=== PATIENT | female | born 1960 | race Caucasian/White ===

== ENCOUNTER 2019-04-29 10:11 | Inpatient (IN) | payer OTHER ==
[~2019-04-29] VITALS: Ht 167.6 cm; Wt 54.4 kg
--- NOTE | ~2019-04-29 | HC ---
[facility] [place] [address] CONSULTATION Name: QASIM GUTIERREZ Room #: 439-P ADM IN M.R.#: [id number] Admission: 04/29/19 Attend Phys: James Jim Discharge: Date of : 56 Report #: [id number] THIS REPORT FOR: //name// CC: Torito Arnett [facility] physician/PCP NO PCP DATE OF SERVICE: 04/30/2019 CHIEF COMPLAINT: Prolapsed colostomy as well as sacral and ischial pressure ulcerations. HISTORY OF PRESENT ILLNESS: This is a 58-year-old female patient who presented to the Emergency Department yesterday with a prolapsed colostomy. The patient has really not been able to provide much information about herself. She came from [facility] and was also noted to have pressure ulcers to the pelvic region and I have been asked to see her with regard to this. Listed in her past in her record include past medical history of COPD, paraplegia, multiple pressure ulcerations, hypertension, and hypothyroidism. CURRENT MEDICATIONS: Include levothyroxine, Zoloft, Coumadin, Augmentin, oxybutynin, midodrine, and Lipitor. ALLERGIES: TETRACYCLINE. SOCIAL HISTORY: No history of alcohol or tobacco use. FAMILY HISTORY: Noncontributory. REVIEW OF SYSTEMS: CONSTITUTIONAL: The patient denies fever, chills, or weight loss. NEUROLOGICAL: The patient has paraplegia. Denies other focal weakness, numbness or tingling. EYES: The patient denies visual changes, redness, or drainage. ENT: The patient denies earache, nasal drainage, and sore throat. CARDIOVASCULAR: The patient denies chest pain, palpitations or diaphoresis. PULMONARY: The patient denies cough or shortness of breath. GASTROINTESTINAL: The patient does note some mild abdominal discomfort. She is aware of the prolapse of her colostomy. She cannot recall specific facts regarding the colostomy, like its location or level. ORTHOPEDIC: The patient is loosely aware that she has pressure ulcers on the pelvic region, but is unaware of their duration or onset or previous treatment. Other systems in a 14-point review of systems are negative or unobtainable and per history of present illness. [facility] [address] [place] [address] CONSULTATION Name: QASIM GUTIERREZ Room #: 439- ADM IN ..#: [id number] Admission: 04/29/19 Attend Phys: James Jim Discharge: Date of : 56 Report #: [id number] PHYSICAL EXAMINATION: VITAL SIGNS: At this time include temperature 37.2, pulse 88, respiratory rate 18, and blood pressure 102/93. GENERAL: This is a somewhat chronically ill-appearing female patient who appears to be in minimal distress. HEENT: Head normocephalic. Nose and throat clear. NECK: Supple. ABDOMEN: Soft. Bowel sounds present. Colostomy is slightly prolapsed today. It is to the right of the midline. EXTREMITIES: Pelvic region demonstrates fairly large extensive pressure ulceration. She has a stage 4 pressure ulcer of the left ischial tuberosity and a very large stage 4 pressure ulcer of the sacrum. She has an unstageable pressure ulcer of the right greater trochanter. She has some flexion contracture of the lower extremities. Heels appear to be intact at this time. NEUROLOGIC: The patient has paraplegia with some contracture of the lower extremity. LABORATORY DATA: Include white blood cell count 11.8 down from 17.1, hemoglobin is 7.2. Sodium 132, potassium 3.1, chloride 99, CO2 of 24, BUN 14, creatinine 0.4, albumin is very low at 1.8. CLINICAL IMPRESSION: 1. Prolapsed colostomy. Currently being evaluated by Surgery. 2. Stage 4 pressure of the left ischium. 3. Stage 4 pressure ulcer of the sacrum. 4. Unstageable pressure ulcer of the right greater trochanter. 5. Possible osteomyelitis of the pelvis. 6. Severe protein-calorie malnutrition, albumin 1.8. 7. Paraplegia. 8. History of chronic obstructive pulmonary disease. RECOMMENDATIONS: At this point in time, we will start with Dakin's moist gauze dressings to the pelvic ulcerations. She will need a low air loss mattress and q. 2 hour turning and positioning. She will need aggressive nutritional support. One may give some consideration to placement of a feeding tube to help with offsetting her severe nutritional deficits. At these levels, I would not predict adequate wound healing. I think she would benefit from surgical debridement of the pressure ulcerations. Dr. Giordano has already been consulted to evaluate her colostomy. We will ask him to evaluate her for debridement of the pressure ulcerations. She may be a good candidate for a wound VAC. She has already been ____, which is good. I appreciate being asked to see her in consultation. By: 1010 1222 Aram Kelley MD /nt
[2019-04-29 10:13] VITALS: BP 104/42
[2019-04-29] MEDS ORDERED: FOSAMAX 70 MG T70 MG PO (10:46)
[2019-04-29] MEDS ORDERED: LEVO-T100 MCG PO (10:47)
[2019-04-29] MEDS ORDERED: PROTONIX40 M2 PO (10:47)
[2019-04-29] MEDS ORDERED: ZOLOFT100 MG PO (10:48)
[2019-04-29] MEDS ORDERED: AUGMENTIN 875-1 EACH PO (10:48)
[2019-04-29] MEDS ORDERED: COUMADIN 5 MG TA5 M1 PO (10:48)
[2019-04-29] MEDS ORDERED: OXYBUTYNIN 5 MG5 M2 PO (10:49)
[2019-04-29] MEDS ORDERED: MIDODRINE HCL2.5 M1 PO (10:49)
[2019-04-29] MEDS ORDERED: LIPITOR10 MG PO (10:49)
[2019-04-29] MEDS ORDERED: LASIX 40 MG TAB40 MG PO (10:50)
[2019-04-29] MEDS ORDERED: ALPRAZOLAM XR3 MG PO (10:50)
[2019-04-29 11:01] LABS: ABSOLUTE NEUTROPHILS 14.6 thou/uL (1.4-8.2); BASOPHILS 0.4 % (0.0-2.0); EOSINOPHILS 1.7 % (0.0-3.0); HEMATOCRIT 27.4 % (37.0-47.0); HEMOGLOBIN 8.5 gm/dL (12.0-15.0); LYMPHOCYTES 6.3 % (24.0-44.0); MCH 24.7 pg (26.0-34.0); MCHC 30.9 g/dL (28.0-37.0); MCV 79.7 fL (80.0-100.0); MONOCYTES 5.9 % (1.0-8.0); PLATELET COUNT 562 thou/uL (150-400); POLYS 85.7 % (36.0-66.0); RBC 3.43 mil/uL (4.20-5.00); RDW 16.7 % (10.5-14.5); WBC 17.1 thou/uL (4.0-11.0)
[2019-04-29 11:02] LABS: CALCIUM 8.2 mg/dL (8.5-10.1); CREATININE 0.5 mg/dL (0.6-1.0); POTASSIUM 3.6 mmol/L (3.5-5.1)
[2019-04-29 11:08] LABS: ALBUMIN 1.8 g/dL (3.4-5.0); TOTAL BILIRUBIN 0.5 mg/dL (<0.1-1.0); TOTAL PROTEIN 6.6 g/dL (6.4-8.2)
--- NOTE | 2019-04-29 11:53 | NUR ---
PT AWAY FROM ROOM- CT
[2019-04-29 12:45] LABS: INR 1.4; PROTIME 13.6 Seconds (9.3-11.4)
[2019-04-29 13:55] LABS: URINE BILIRUBIN NEGATIVE (Negative); URINE BLOOD 2+ (Negative); URINE CLARITY CLEAR; URINE COLOR YELLOW; URINE GLUCOSE-RANDOM* NEGATIVE (Negative); URINE KETONES NEGATIVE (Negative); URINE PROTEIN (DIPSTICK) NEGATIVE (Negative); URINE SPECIFIC GRAVITY <= 1.005 (1.005-1.035); URINE UROBILINOGEN 0.2 E.U./dl (0.2-1.0)
[2019-04-29 14:14] LABS: URINE LEUKOCYTES-REFLEX 3+ (Negative); URINE NITRITE-REFLEX POSITIVE (Negative)
[2019-04-29 14:25] LABS: AMORPHOUS URATES Moderate /LPF (None Seen); CASTS None Seen /LPF (None Seen); SQUAMOUS 0-3 Few /LPF (0-3); URINE RBC 3-10 Few /HPF (0-2); URINE WBC-REFLEX 6-15 Few /HPF (0-5)
[2019-04-29 14:59] VITALS: BP 102/45
[2019-04-29 15:35] VITALS: BP 102/45
[2019-04-29 17:11] VITALS: BP 94/48
[2019-04-29 20:10] VITALS: BP 93/43
--- NOTE | 2019-04-29 20:14 | NUR ---
PT RECEIVED FROM THE ER AT 1635 TO 439 ALERT AND IN NO ACUTE DISTRESS. IV FLUIDS GIVEN IN ER AND VANCO FINISHED THIS AFTERNOON. PT DENIES PAIN. TURNS WELL IN BED. DSNGS CHANGED ON WOUNDS AFTER ADMISSION PICTURES TAKEN. OSTOMY PROLAPSED MORE AFTER BEING REDUCED SOME IN THE ER. LIQUID BROWN STOOL OUTPUT NOTED AT THIS TIME. ATE SOME FOR DINNER. TAKING WATER WELL.
--- NOTE | 2019-04-30 03:51 | NUR ---
ASSUMED CARE OF PT FROM DAY SHIFT PT RESTING IN BED, DENIES PAIN ALERT TO SELF AND PLACE, CALM COOPERATIVE, ABLE TO TAKE PILLS WHOLE. IV ABX GIVEN,. COLOSTOMY WITH BAG ATTACH IN PLACE WITH BROWN SOFT STOOL. PT REPOSITION EVERY 2 HOURS, PT RESTED WELL THROUGHOUT HOURLY ROUNDS, WILL CONITNUE WITH CURRENT PLAN OF CARE.
[2019-04-30 04:00] VITALS: BP 108/34
[2019-04-30 06:46] LABS: HEMATOCRIT 23.3 % (37.0-47.0); HEMOGLOBIN 7.2 gm/dL (12.0-15.0); MCV 80.6 fL (80.0-100.0); RBC 2.89 mil/uL (4.20-5.00); RDW 17.4 % (10.5-14.5); WBC 11.8 thou/uL (4.0-11.0)
[2019-04-30 07:01] LABS: INR 1.4; PROTIME 14.1 Seconds (9.3-11.4)
[2019-04-30 07:06] LABS: CALCIUM 8.4 mg/dL (8.5-10.1); CREATININE 0.4 mg/dL (0.6-1.0); POTASSIUM 3.1 mmol/L (3.5-5.1)
[2019-04-30 08:11] VITALS: BP 102/93
--- NOTE | 2019-04-30 09:26 | NUR ---
OSTOMY CARE; POUCH LEAKING, LOOP STOMA PROLAPSED ~12CM, PT UNABLE TO STATE WHEN SHE HAD OSTOMY SURGERY, OR TYPE OF STOMA, DUE TO LOCATION PROBABLE TRANSVERSE LOOP, PERISTOMAL SKIN INTACT, LOOSE BROWN STOOL NOTED, ALERT AND COOPERATIVE, 2 PIECE 4 INCH POUCH MAGDALENA POUCH APPLIED W/ STOMA PASTE, SUPPLIES PLACED AT BS, SLEEP TECHNICIAN INFORMED RECOMMENDATIONS 4 INCH MAGDALENA 2 PIECE SYSTEM, CHANGE Q3-4 DAYS AND PRN
--- NOTE | 2019-04-30 10:07 | H ---
[facility] [place] [address] HISTORY AND PHYSICAL Name: QASIM GUTIERREZ Room #: 439-P ADM IN M.R.#: [id number] Admission: 04/29/19 Attend Phys: James Jim Discharge: Date of : 56 Report #: [id number] THIS REPORT FOR: //name// CC: Torito VÁSQUEZ physician/PCP NO PCP DATE OF SERVICE: 04/29/2019 CHIEF COMPLAINT: Abdominal pain. HISTORY OF PRESENT ILLNESS: The patient is a 58-year-old female sent from [facility] facility for evaluation of her abdominal pain and concern of prolapsing ostomy. The nursing staff noted what appeared to be bowel prolapsing from the ostomy site since yesterday. She said it has been causing her some discomfort or pain. She really cannot provide much other details or history. When asked specifically about her medications, wounds or why she is in the facility, she cannot explain why. PAST MEDICAL HISTORY: COPD, DVT, chronic Coumadin, paraplegia, multiple pressure wounds, bilateral ischial tuberosity wounds. PAST SURGICAL HISTORY: Other than the colostomy is unknown. FAMILY HISTORY: Noncontributory. SOCIAL HISTORY: Unknown alcohol or tobacco use. ALLERGIES: TETRACYCLINE. MEDICATIONS: Fosamax, Levoxyl, Protonix, Zoloft, Coumadin, oxybutynin, midodrine, Lipitor, Lasix, Xanax. REVIEW OF SYSTEMS: She denies headache, chest pain, shortness of breath, dysuria, myalgias, syncope or fall. OBJECTIVE: VITAL SIGNS: Temperature 37.1, pulse 105, respirations 25, blood pressure 104/42, O2 sat 99% on 2 liters. GENERAL: She is awake and alert, resting comfortably in bed, in no distress. HEAD AND NECK: Unremarkable. LUNGS: Clear. HEART: Regular. ABDOMEN: Soft, normoactive bowel sounds with colostomy in the right mid abdomen. EXTREMITIES: No cyanosis, clubbing or edema. There is a flexion contracture of [address] [address] [facility] ADM IN M.R.#: [id number] Admission: 04/29/19 Attend Phys: James Jim Discharge: Date of : 56 Report #: [id number] the left hip. There is a large open wound in the left hip along with excoriated area on the right hip. NEUROLOGIC: Her speech is intact. She moves upper extremities, limited to no movement of lower extremities. LABORATORY DATA: White count 17, hemoglobin 8.5, MCV 79. Sodium 127, [address] 1[address] of the abdomen and pelvis revealed some edema around the ostomy, but no fluid collection or abscess. There is also a large left decubitus ulcer with exposed tuberosity and osteomyelitis with changes of septic arthritis in the left hip joint. There is also note of a smaller right wound overlying the right ischial tuberosity, fluid extends from the skin to the tuberosity, but no evidence of bone destruction or osteomyelitis on the right. ASSESSMENT: 1. Sepsis syndrome. 2. Left septic arthritis. 3. Left hip osteomyelitis. 4. Left ischial tuberosity stage 4 wound. 5. Microcytic anemia. 6. Paraplegia. 7. Chronic anticoagulation with Coumadin. 8. Severe protein-calorie malnutrition, albumin 1.8. PLAN: She is admitted for septic treatment including fluid resuscitation in the ER along with IV fluids. Dr. Giordano has been consulted and has assessed her colostomy opening. I have asked Dr. Curt Arnett to assess her for antibiotic treatment and consideration of any further workup needed on the left hip. It is unclear the chronicity of these wounds. <ELECTRONICALLY SIGNED> By: Elijah Braga MD 04/30/19 1007 1422 1436 Elijah Braga MD /nt
--- NOTE | 2019-04-30 10:43 | NUR ---
ASSESSMENT-PT CAME FROM [facility]. PRIOR TO THAT SHE SAYS SHE WAS LIVING AT HOME WITH HER IN AN EARTH CONTACT HOME. PT USES A WC FOR MOBILITY. PT UNSURE WHO PROVIDES HER O2. SON LIVES IN THE [place] AND ANOTHER SON IN [place]. SPOUSE IS A COUPLE OF YEARS OLDER, WORKS AND IS INDEPENDENT. ANTICIPATE PT WILL RETURN TO [facility] SKILL[facility] AT DC. TELEPHONE UPDATE PROVIDED TO RUDI AT [facility]. FOLLOWING TO ASSIST WITH DC PLANNING.
[2019-04-30 19:40] VITALS: BP 92/41
--- NOTE | 2019-04-30 21:02 | NUR ---
A&OX4, VSS, DENIES PAIN. WOUND DRESSING CHANGE COMPLETED. PATIENT HAD FEVER OF 102, TYLENOL GIVEN AND TEMP DECREASED TO 98. NO SIGNS OF DISTRESS. PATIENT TURNED. OSTOMY CARE DONE BY OSTOMY NURSE. SURGEON IN TO VIEW OSTOMY WITH PROTRUDING INTESTINES. NO BM FROM OSTOMY, SEROSANGUINOUS DRAINAGE IN BAG. WILL CONTINUE TO MONITOR.
--- NOTE | 2019-05-01 02:13 | NUR ---
PT CARE ASSUMED AT 1900 WITH OT SLEEPING.PT DENIED PAIN AND N/V.PT HAS A ALMEIDA CATHETER IN PLACE.PT HAS A PROLAPSED OSTOMY( POSSIBLE SURGERY TODAY).PT APPEARED TO BE IN NO DISTRESS.WILL CONTINUE TO MONITOR POC
[2019-05-01 05:48] VITALS: BP 105/50
[2019-05-01 06:33] LABS: INR 1.7; PROTIME 17.2 Seconds (9.3-11.4)
[2019-05-01 08:01] VITALS: BP 103/48
[2019-05-01 16:50] VITALS: BP 99/43
[2019-05-01 20:10] VITALS: BP 104/44
--- NOTE | 2019-05-01 20:21 | NUR ---
QUIET UNEVENTFUL DAY. RESTED IN BED QUIETLY. POOR APPETITE NOTED. IV ANTIBIOTICS CONTINUED. FALL PRECAUTIONS IN PLACE. DENIED PAIN.
[2019-05-02 04:25] VITALS: BP 98/43
--- NOTE | 2019-05-02 05:26 | NUR ---
1909-Report received from day shift nurse and care assumed. The pt. had an uneventful shift, she remains on IV Antibiotic, wound dressings intact.
[2019-05-02 05:59] LABS: ABSOLUTE NEUTROPHILS 10.4 thou/uL (1.4-8.2); BASOPHILS 0.4 % (0.0-2.0); EOSINOPHILS 2.2 % (0.0-3.0); HEMATOCRIT 22.4 % (37.0-47.0); LYMPHOCYTES 9.5 % (24.0-44.0); MCHC 31.4 g/dL (28.0-37.0); MCV 79.6 fL (80.0-100.0); PLATELET COUNT 399 thou/uL (150-400); POLYS 82.9 % (36.0-66.0); RBC 2.82 mil/uL (4.20-5.00); RDW 17.2 % (10.5-14.5); WBC 12.5 thou/uL (4.0-11.0)
[2019-05-02 06:14] LABS: INR 2.3; PROTIME 23.3 Seconds (9.3-11.4)
[2019-05-02 06:19] LABS: CALCIUM 7.8 mg/dL (8.5-10.1); CREATININE 0.4 mg/dL (0.6-1.0); POTASSIUM 3.2 mmol/L (3.5-5.1)
[2019-05-02 07:05] VITALS: BP 90/42
[2019-05-02] MEDS ORDERED: MIRALAX17 GM PO (08:53)
[2019-05-02] MEDS ORDERED: SENNA-TIME S T1 EACH PO (08:53)
--- NOTE | 2019-05-02 11:22 | NUR ---
OSTOMY CARE pouch intact no leakage, stoma pink viable remains prolapsed, mushy brown stool noted, supplies at bs, staff educator informed, will cont to follow prn RECOMMENDATIONS; CONT W/ 4 INCH MAGDALENA CUT TO FIT APPLIANCE, CHANGE Q 3-5 DAYS AND PRN
--- NOTE | 2019-05-02 12:57 | EKG ---
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
--- NOTE | 2019-05-02 14:44 | NUR ---
PT DISCHARGING TODAY TO [facility] OP FAXED DC ORDERS/SUMMARY TO FACILITY SPOKE WITH NANCY IN ADM SHE RECEIVED DC ORDERS THEY DO NOT HAVE TRANSPORT AVAILABLE TODAY, ARRANGED TRANSPORT WITH [facility] FOR [id number]. NOTIFIED PT'S (CONNOR) OF DC AND TIME OF TRANSPORT. UNIT NOTIFIED AND CHART COPY PER US. RN TO CALL REPORT TO [phone].
[2019-05-02 16:10] VITALS: BP 96/37
[2019-05-02 16:11] VITALS: BP 98/48
--- NOTE | 2019-05-02 17:36 | NUR ---
Assumed care of pt at 0700. Pt alert and oriented but forgetful at times. Chronic rodrigez catheter. Prolapsed colostomy. Pressure wound care dressing changed. Denies pain. Q2h turn. 3L O2. Discharged to skilled facility.
[2019-05-03 00:07] LABS: GLYCOHEMOGLOBIN (HGB A1C) 5.2 % (4.8-5.6)
--- NOTE | 2019-05-05 16:10 | D ---
[facility] [place] [address] DISCHARGE SUMMARY Name: QASIM GUTIERREZ Room #: 439-P DIS IN M.R.#: [id number] Admission: 04/29/19 Attend Phys: Jaems Jim Discharge: 05/02/19 Date of : 56 Report #: [id number] THIS REPORT FOR: //name// CC: Torito Arnett [facility] physician/PCP NO PCP DATE OF SERVICE: 05/02/2019 FINAL DIAGNOSES: 1. Prolapsed colostomy. 2. Osteomyelitis of the left hip. 3. Septic arthritis, left hip. 4. Stage 4 wound, left IT joint. 5. Anemia of chronic disease. 6. Severe protein-calorie malnutrition. HOSPITAL COURSE: The patient was admitted for concern of her colostomy prolapse. She was followed by Dr. Giordano. I talked to him on several occasions regarding and at this point, there were no surgical interventions indicated. He felt that this would continue to prolapse based on its location and size. At this point, he does not feel surgery was indicated. She received wound care and supportive measures. ID and wound care service followed her as well. There was evidence of a septic joint on the left hip along with osteomyelitis related to a chronic left IT wound. This has previously been treated and addressed at the LTAC facility and completed a course of antibiotics without improvement. My understanding from the LTAC facility was that this was chronic and there were no surgical plans indicated at this point. The plans will be for her to get finish a course of IV antibiotics followed by oral suppression. DISPOSITION: She is transferred back to [facility] facility. She will continue usual medications along with Augmentin twice a day for a month, should be under the care of Dr. Arnett. <ELECTRONICALLY SIGNED> By: Elijah Braga MD 05/05/19 1610 1204 1224 Elijah Braga MD /nt
== END 2019-05-02 17:10 | DRG 871 ==
LOC: ER 10:11 → EROBS 13:56 → 4S 13:56
PROVIDERS: Emergency Medicine; Internal Medicine Geriatric Medicine; Internal Medicine Infectious Disease; Nurse Practitioner Family; ADMIT Internal Medicine
DX: A41.9 Sepsis, unspecified organism (principal); L89.154 Pressure ulcer of sacral region, stage 4; L89.304 Pressure ulcer of unspecified buttock, stage 4; E43 Unspecified severe protein-calorie malnutrition; K94.09 Other complications of colostomy; M00.9 Pyogenic arthritis, unspecified; G82.20 Paraplegia, unspecified; E87.1 Hypo-osmolality and hyponatremia; Z68.1 Body mass index [BMI] 19.9 or less, adult; M86.8X8 Other osteomyelitis, other site; G93.40 Encephalopathy, unspecified; J44.9 Chronic obstructive pulmonary disease, unspecified; I10 Essential (primary) hypertension; E03.9 Hypothyroidism, unspecified; D63.8 Anemia in other chronic diseases classified elsewhere; L89.219 Pressure ulcer of right hip, unspecified stage; E87.6 Hypokalemia; E88.09 Other disorders of plasma-protein metabolism, not elsewhere classified; Z86.718 Personal history of other venous thrombosis and embolism; Z88.1 Allergy status to other antibiotic agents; Z79.01 Long term (current) use of anticoagulants; Z79.899 Other long term (current) drug therapy
CPT/HCPCS: 10195